=== PATIENT | female | born 1980 | race American Indian/Alaskan Native ===

== ENCOUNTER 2018-08-06 08:00 | Inpatient (IN) | payer MEDICAID ==
[~2018-08-06] VITALS: Ht 160 cm; Wt 89.8 kg
[~2018-08-06 08:00] MED LIST: ACE3 PO; CEPH500C24 PO; CLOT15CR63 TP; FLUC150T40 PO; IBUP800T37 PO; PREN-127 PO; vitamins
[2018-08-06] MEDS ORDERED: DLR(*) 1000 ML BAG 1,000 ML IV PRN (08:27)
[2018-08-06] MEDS ORDERED: OXYTOCIN 30 UNIT/D5LR 500 ML 500 ML IV PRN (08:27)
[2018-08-06] MEDS ORDERED: FAMOTIDINE(*) 20MG/50ML PREMIX 50 ML IVPB PRN (08:27)
[2018-08-06] MEDS ORDERED: METOCLOPRAMIDE 10 MG/2 ML SDV IVP PRN (08:30)
[2018-08-06] MEDS ORDERED: FLUSH 10 ML SYR IVP PRN (08:30)
[2018-08-06] MEDS ORDERED: fentaNYL CITR 100 MCG/2 ML AMP IVP PRN (08:30)
[2018-08-06] MEDS ORDERED: LIDOCAINE 1% LOCAL 300 MG/30ML INJ PRN (08:30)
[2018-08-06] MEDS ORDERED: EPIDURAL KEYS XX PRN (08:45)
[2018-08-06] MEDS ORDERED: FENTANYL/ROPIVACAINE 100 ML BAG EPI PRN (08:50)
[2018-08-06] MEDS ORDERED: BUPIVACAINE 0.25% MPF INJ EPI PRN (08:50)
[2018-08-06] MEDS ORDERED: LIDOCAINE/PF 2% 200MG/10ML AMP 200 MG/10 ML AMPUL EPI PRN (08:50)
[2018-08-06] MEDS ORDERED: BUPIVACAINE 0.5% INJ 30ML VIAL EPI PRN (08:50)
[2018-08-06] MEDS ORDERED: fentaNYL CITR 100 MCG/2 ML AMP IT PRN (08:50)
[2018-08-06] MEDS ORDERED: LIDO/EPI 2% MPF 1:200,000 20ML EPI PRN (08:50)
[2018-08-06 08:52] LABS: PLATELET COUNT, AUTOMATED 206 K/uL (150-450)
[2018-08-06] MEDS: LR(*) 1000 ML BAG 1,000 ML IV PRN ×2 (09:13→09:52)
--- NOTE | 2018-08-06 09:26 | History & Physical ---
History of Present Illness Age of Patient: 38 : 4 Para or TPAL: 3 EDC per LMP: Aug 03, 2018 Estimated Gestational Age: 40 Chief Complaint labor History of Present Illness Presents for contractions and pain. Dilated to 9 cm and feeling pushy. uncomplicated and uncomplicated prior OB history. Past Medical, Surgical, Family and Obstetric Histories reviewed. Please see ACOG chart. History Allergies: Coded Allergies: No Known Drug Allergies (Unverified , 10/22/13) Med Rec Home Meds Reported Medications Vits W-Ca,Fe,Fa(<1MG) ( VITAMINS) 1 Each Tablet, 1 EACH PO DAILY, TAB 07/08/18 Review of Systems All Systems Reviewed/Normal: Yes, Except as Noted Exam General Exam General Apperance: Alert/Awake/No Acute Distress Neuro: No Gross deficits Cardiovascular: Regular Rate and Rhythm Respiratory: No Respiratory Distress Abdomen: Soft, Non-Tender, Non-Distended Extremities: No Cyanosis,Clubbing or Edema Integumentary: Skin Intact without Lesions or Rash Psychological: Alert & Oriented X3, Appropriate Mood & Affect Cervical Dialation: 9 Cervical Effacement (%): 100 Cervical Consistency: Soft Cervical Position: Anterior Station: 0 Presentation: Vertex Fetus Heart Tone Variabilty: Moderate FHT Accelerations: 15X15 FHT Category: I Medical Decision Making Data Points Result Diagram: 08/06/18 0842 VTE Prophylasis: Adult Deep Vein Thrombosis/Pulmonary: No Pharmacological Contraindicati: Pt at Low Risk for VTE Mechanical Contraindications: Pt at Low Risk for VTE 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
--- NOTE | 2018-08-06 10:22 | Anesthesia OB Pre-Anes Eval ---
History of Present Illness Anesthesia Start Date: Aug 06, 2018 Anesthesia Start Time: 09:45 OB Anesthesia Diagnosis: spontaneous labor EDC: Nov 02, 2014 : 3 Para: 2 Result Diagram: 08/06/18 0842 Weight (Pounds): 190 Past Medical History Medical History: no pertinent history Surgical History: no surgical history Previous Anesthesia: epidural Attended Childbirth Classes?: No Hx Anesthesia Reactions: No Hx Family Anesthesia Reaction: No Current Medications: pain medication Home Meds Reported Medications Vits W-Ca,Fe,Fa(<1MG) ( VITAMINS) 1 Each Tablet, 1 EACH PO DAILY, TAB 07/08/18 Allergies: Coded Allergies: No Known Drug Allergies (Unverified , 10/22/13) Anesthesia OB ROS Neurological: No migraines/headaches, No seizures, No neuropathy, No other ENT: Denies Tooth caps, Denies Loose teeth, Denies Chipped teeth, Denies Dentures, Denies Bridges, Denies Retainers, Denies Veneers, Denies Implants, Denies Tongue ring, Denies Other Pulmonary: No asthma, No smoker (pks/day/yrs), No other Airway Class: ll Cardiovascular ROS: No edema, No arrhythmia, No other GI ROS: clear liquids ROS: No Herpes, No STD(s), No Liver Disease, No Renal Disease, No Other Endocrine ROS: No diabetes, No gestational diabetes, No thyroid disorder, No other Musculoskeletal ROS: No low back pain, No low back injury, No scoliosis, No other ASA Classification: 2 Assessment and Plan Anesthesia Plan: CHARLEY MATHIAS CRNA Aug 06, 2018 10:22
--- NOTE | 2018-08-06 10:26 | Procedure Note ---
Anesthetic Placement Note Anesthesia Plan: LEB Permit for Anesthesia Signed: Yes Anesthesia Technique: Patient Sitting Anesthesia Prep: Chlorhexidine Interspace: L 4-5 Local Anesthetic: 1% Lidocaine, 25 Gauge Needle Amount Local - cc's: 3 Anesthesia Needle: 17g Touhy/Schliff Anesthesia Attempts: 1 Loss of Resistance: Normal Saline Depth of MANDEEP (cm): 5 Epidural Needle Placement: No CSF, No Blood, No Parasthesia Intrathecal Needle: 27 Gauge Pencan (dural puncture technique) Cerebral Spinal Fluid: Yes Catheter Insertion (cm): 5 Catheter Type: Zamora - Spring Wound Epidural Dressing: Tegaderm, Tape Anesthesia Tray: Lot Number ([id number]), Expiration Date (06/27/2019), Reference Number ([id number]) Anesthesia Medications: Epidural Test Dose: 1.5 Lido/Epi (1:200,000), Dose - mL (5 mL incrementally), Time (0956), Negative Epidural Loading Dose: 0.2% Ropivicaine, With Fentanyl 2mcg/ml, Dose - ml (5mL), Time (1005), Other (0.5% marcaine PF 3 mL bolus) Epidural Infusion: 0.2% Ropivicaine, With Fentanyl 2mcg/ml, Start Time: (1005) Epidural Pump Setting: Bolus Dose - mL (5), Lockout - Minutes (20), Maintenance Rate - mL/hr (8), Maximum per Hour - mL (23) Complications: None Comment: 100 mcg Fentanyl via epidural catheter at 1000 CHARLEY JOHNSTON CRNA Aug 06, 2018 10:26
[2018-08-06] MEDS ORDERED: LANOLIN OINT 7 GM TUBE TP PRN (12:30)
[2018-08-06] MEDS ORDERED: GLYCERIN/WITCH HAZEL LEAF 1 PK TP PRN (12:30)
[2018-08-06] MEDS ORDERED: HYDROCORTISONE 2.5% CR 30GM TB PR PRN (12:30)
[2018-08-06] MEDS ORDERED: APAP/HYDROCODONE 325/5 TAB PO PRN (12:30)
[2018-08-06] MEDS ORDERED: BENZOCAINE 20% 60 ML BTL TP PRN (12:30)
[2018-08-06] MEDS ORDERED: MAGNESIUM HYDROXIDE* 30ML UDCP PO PRN (12:30)
--- NOTE | 2018-08-06 12:32 | OB Delivery Note ---
Delivery Note Vaginal Delivery Type: Spont. Vaginal Delivery Delivery Date: Aug 06, 2018 Delivery Time: 12:06 Estimated Gestational Age(wks): 40.2 Delivery Anesthesia: Epidural Infant Sex: Female Estimated Blood Loss: 100 Delivery Complications: Other (thin meconium) Notes: Presented in active labor, 9 cm. Epidural placed and she went to complete and +2 station. Pushing effectively brought baby to KRISTEN and . Shoulders delivered without manipulation and no lacerations. Placenta delivered intact and spontaneous. Scant bleeding upon completion. Medical Sociologist in Attendence: ALLISON Valdez MD Aug 06, 2018 12:31
[2018-08-06] MEDS: IBUPROFEN 800 MG TAB PO SCH ×2 (13:54→21:33)
--- NOTE | 2018-08-06 13:57 | Anesthesia Progress Note ---
Progress/Maintenance Anesthesia Note Date: Aug 06, 2018 Anesthesia Note Time: 13:57 Pump: Off Assessment and Plan Anesthesia Stop Day: Aug 06, 2018 Anesthesia Stop Time: 12:06 CHARLEY JOHNSTON CRNA Aug 06, 2018 13:57
[2018-08-06 14:58] VITALS: BP 178/89; Ht 160 cm; Wt 89.8 kg
[2018-08-06 16:00] VITALS: BP 116/62
[2018-08-06 19:15] VITALS: BP 128/83
[2018-08-06] MEDS: DOCUSATE CALCIUM 240 MG CAP PO SCH (21:33)
[2018-08-06 23:05] VITALS: BP 125/70
[2018-08-06] MEDS: ACETAMINOPHEN 325 MG TAB PO PRN (23:56)
[2018-08-07 03:05] VITALS: BP 125/76
[2018-08-07] MEDS: IBUPROFEN 800 MG TAB PO SCH ×3 (06:14→21:30)
[2018-08-07 08:00] VITALS: BP 115/72
[2018-08-07] MEDS ORDERED: IBUP800T37 PO (08:38)
[2018-08-07] MEDS ORDERED: DOCU-416 PO (08:38)
--- NOTE | 2018-08-07 08:41 | OB/GYN Discharge Summary ---
Discharge Summary Reason for Hosp/Final Diag: (1) 40 weeks gestation of (2) Normal labor Hospital Course & Plan: Doing well day 2 from . Discharge home today. Follow-up 6 weeks PP, sooner prn. Lates Vital Signs Vital Signs Date Time Temp Pulse Resp B/P (MAP) Pulse Ox O2 Delivery O2 Flow Rate FiO2 08/07/18 03:05 98.0 81 18 125/76 (92) Room Air 08/06/18 23:05 95 Weight (Pounds): 198 Result Diagram: 08/07/18 0620 Condition: Improved Discharge: Home, Self Group Home Meds Reported Medications Vits W-Ca,Fe,Fa(<1MG) ( VITAMINS) 1 Each Tablet, 1 EACH PO DAILY, TAB 07/08/18 [facility] [phone], Dr. Loomis [phone] Follow up in: 6 wks PP or PO Discharge Diet: As Tolerates Discharge Activity: As Tolerates, Pelvic Rest JENIFER XIONG Aug 07, 2018 08:40
--- NOTE | 2018-08-07 09:15 | OB/GYN Progress Note ---
OB Subjective Progress Notes Subjective 38 yo female PP day #1 from [facility]. Doing well without complication overnight. Tolerating PO no nausea/vomiting. Voiding well. Moderate vaginal bleeding - slowing. Breast feeding . GI: POS Flatus; NEG Nausea, NEG Vomiting : Voiding Well, Vaginal Bleeding, Moderate Pain: Moderate, Tolerating PO Pain Meds Neurological: No Headache OB Objective Physical Exam Vital Signs Date Time Temp Pulse Resp B/P (MAP) Pulse Ox O2 Delivery O2 Flow Rate FiO2 08/07/18 03:05 98.0 81 18 125/76 (92) Room Air 08/06/18 23:05 95 Intake and Output 08/07/18 06:59 Intake Total 2600 ml Balance 2600 ml Intake Oral 0 ml IV Total 2600 ml # Voids 2 General Appearance: Alert/Awake/No Acute Distress Neurological: No Gross deficits Cardiovascular: Normal Rhythm & Peripheral Pulses Respiratory: No Respiratory Distress Abdomen: Fundus Firm, Other (soft non-distended. 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 Patient preference to stay over night tonight, discharge home tomorrow. JENIFER XIONG Aug 07, 2018 09:15
[2018-08-07] MEDS: DOCUSATE CALCIUM 240 MG CAP PO SCH ×2 (09:35→21:29)
--- NOTE | 2018-08-07 11:08 | Anesthesia Post Eval Note ---
Anesthesia Post Eval Note Vital Signs Date Time Temp Pulse Resp B/P (MAP) Pulse Ox O2 Delivery O2 Flow Rate FiO2 08/07/18 03:05 98.0 81 18 125/76 (92) Room Air 08/06/18 23:05 95 Pt able to participate in Eval: Yes Cardiovascular Status: Satisfactory Respiratory Status: Satisfactory Pain Managment: Satisfactory PO Nausea/Vomiting: Satisfactory Temperature Management: Satisfactory Mental Status: Satisfactory, Alert, Oriented X3 Post-Op Hydration Status: Satisfactory, Tolerating PO Well, Voiding w/o Difficulty Anesthesia Type: LEB Anesthesia Tolerance: No anesthesia concerns. Ambulating well, tolerating diet, pain well controlled. Sensory/motor block resolved. CHARLEY JOHNSTON CRNA Aug 07, 2018 11:08
[2018-08-07] MEDS ORDERED: INFLUENZA VIRUS VAC 0.5ML SYR IM ONLY ONE (12:30)
[2018-08-07] MEDS ORDERED: MEASLES,MUMP,RUBELLA VAC 0.5ML SUBQ ONE (12:30)
[2018-08-07] MEDS ORDERED: DIPHTH/TETANUS/ACEL. PERTUSSIS IM ONLY ONE (12:30)
[2018-08-07 14:20] VITALS: BP 121/70
[2018-08-07 19:10] VITALS: BP 127/77
--- NOTE | 2018-08-07 21:00 | RADIOLOGY IMAGING REPORT ---
FACILITY: [facility] PATIENT NAME: Indira Christianson : 1980 MR: [id number] V: [id number] EXAM DATE: ORDERING PHYSICIAN: PANCHO ALVARADO TECHNOLOGIST: Location: [facility] [place] Patient: Indira Christianson : 1980 Visit/Account:[id number] Date of Sevice: 08/07/2018 EXAMINATION: US VENOUS LOWER EXT RT COMPARISON: None Available HISTORY: Popliteal fossa palpable lump. One day . FINDINGS: Standard right lower extremity Doppler ultrasound with color flow and spectral analysis is performed. The common femoral, femoral, and popliteal veins are widely patent and compress appropriately. The v isualized calf veins and the proximal greater saphenous vein are patent. No popliteal fluid collection. IMPRESSION: No right lower extremity deep venous thrombosis. Report Dictated By: James Brown MD at 08/07/2018 8:53 PM Report E-Signed By: James Brown MD at 08/07/2018 8:56 PM WSN:[id number]
[2018-08-07 23:00] VITALS: BP 125/72
[2018-08-08 03:00] VITALS: BP 123/79
[2018-08-08] MEDS: IBUPROFEN 800 MG TAB PO SCH (06:16)
[2018-08-08] MEDS: DOCUSATE CALCIUM 240 MG CAP PO SCH (08:31)
[2018-08-08 08:35] VITALS: BP 127/67
[2018-08-08] MEDS: ACETAMINOPHEN 325 MG TAB PO PRN (08:42)
--- NOTE | 2018-08-08 09:07 | OB/GYN Progress Note ---
OB Subjective Progress Notes Subjective PP day #2. No acute issues overnight. Vaginal bleeding is moderate - but slowing. Biggest issues is breast engorgement, she has taken tylenol with some improvement and continues to breast feed. Voiding well. Tolerating PO GI: POS Flatus; NEG Nausea, NEG Vomiting : Voiding Well, Vaginal Bleeding, Moderate Pain: Moderate, Tolerating PO Pain Meds OB Objective Physical Exam Vital Signs Date Time Temp Pulse Resp B/P (MAP) Pulse Ox O2 Delivery O2 Flow Rate FiO2 08/08/18 08:35 97.7 82 18 127/67 (87) 95 Room Air Intake and Output 08/08/18 07:00 Intake Total 450 ml Balance 450 ml Intake Oral 450 ml General Appearance: Alert/Awake/No Acute Distress Neurological: No Gross deficits Cardiovascular: Normal Rhythm & Peripheral Pulses Respiratory: No Respiratory Distress Abdomen: Fundus Firm, Other (soft non-distended. 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 Discharge home today. Follow-up 6 weeks PP, sooner prn. JENIFER XIONG Aug 08, 2018 09:07
== END 2018-08-08 11:20 | disposition home or self-care (01) | DRG 807 ==
LOC: OB 08:00
PROVIDERS: ADMIT Obstetrics & Gynecology; ATTEND Obstetrics & Gynecology
PROC: 10E0XZZ Delivery of Products of Conception, External Approach (ICD-10-PCS; principal; 2018-08-06)
DX: O77.0 Labor and delivery complicated by meconium in amniotic fluid (principal); Z37.0 Single live birth; Z3A.40 40 weeks gestation of pregnancy
CPT/HCPCS: 36415; 85025; 85027; 86703; 86850; 86900; 86901; J3010; J7120